=== PATIENT | female | born 1980 | race Caucasian/White ===

== ENCOUNTER 2021-04-03 23:51 | Emergency (ER) | payer SELFPAY ==
[~2021-04-03] VITALS: Ht 157.5 cm; Wt 111.4 kg
[~2021-04-03 23:51] MED LIST: LORTAB 5/500 501 TAB PO; NO HOME MEDICATIONS; PREDNISONE20 MG PO; ZOFRAN4 MG PO
[2021-04-03 23:59] VITALS: TEMP 98.5
[2021-04-04 00:48] VITALS: BP 114/80; PULSE 88
== END 2021-04-04 00:48 | disposition home or self-care (01) ==
LOC: COL.ER 23:51
DX: U07.1 COVID-19 (principal)